=== PATIENT | female | born 1980 | race Caucasian/White ===

== ENCOUNTER 2016-08-25 10:26 | Emergency (ER) | payer BC ==
[2016-08-25 11:20] VITALS: BP 124/88; PULSE 87; RESP 16; TEMP 98.6; O2SAT 98
--- NOTE | 2016-08-25 11:55 | UCPHY ---
H & P Time Seen by Provider: 08/25/16 11:41 Patient Type: Established HPI/ROS: This patient describes left cheek pain and swelling over the weekend. She has had some intermittent nasal congestion left side for more than a week and she reports 5/10 pain described as an ache to that cheek that extends into the ear. She notes no other associated symptoms. No exacerbating or alleviating factors. ROS: No high fevers or chills. No confusion. No drainage from the ear. No change in hearing. No sore throat. She denies any dental pain. She reports no neck stiffness. 7 point ROS is otherwise negative. Past Medical/Surgical History: Otherwise healthy Smoking Status: Former smoker Physical Exam: Physical Exam Vital signs are normal. General: No acute distress HEENT: Patient has mild left cheek swelling and tenderness to percussion. Nose : Swollen nasal mucosa and turbinates on the left side. Right nares normal oropharynx: No dental tenderness to percussion. No gingival tenderness or swelling. No posterior pharyngeal erythema. No submental swelling. Ears: External canals and TMs are clear bilaterally. Eyes: Pupils equal and react to light. Extraocular motions are intact. No conjunctival injection Neck: Supple with no meningismus. No lymphadenopathy. Lungs: No respiratory distress. Cardiac: Brisk capillary refill is intact throughout. Skin: No rash or pallor. Appreciate no erythema or warmth to touch to the skin Neuro: Alert and oriented x3 with no sensorimotor deficits. Initial differential diagnosis: Maxillary sinusitis, trigeminal neuralgia, dental abscess, Constitutional: Initial Vital Signs Temperature (C) 37 C 08/25/16 11:09 Heart Rate 87 08/25/16 11:09 Respiratory Rate 16 08/25/16 11:09 Blood Pressure 124/88 H 08/25/16 11:09 O2 Sat (%) 98 08/25/16 11:09 O2 Delivery Mode Room Air Allergies/Adverse Reactions: cholecalciferol (vitamin D3) [From Vitamin D] Allergy (Verified 08/25/16 11:08) Rash ergocalciferol (vitamin D2) [From Vitamin D] Allergy (Verified 08/25/16 11:08) Rash CATS Allergy (Mild, Uncoded 11/27/15 16:38) NASAL SX SHRIMP Allergy (Unknown, Uncoded 11/27/15 16:38) Unknown Home Medications: Medication Instructions Recorded Cefdinir [Omnicef (RX)] 300 mg PO BID #20 cap 08/25/16 Fluticasone Nasal [Flonase Nasal 2 sprays NASAL DAILY #1 mdi 08/25/16 [place] (RX)] MDM/Departure - Depart Clinical Impression: Maxillary sinusitis, acute Qualifiers: Recurrence: non-recurrent Qualifier Code: (J01.00) Acute maxillary sinusitis, unspecified Instructions: Sinusitis (ED) Additional Instructions: Diagnosis: Left maxillary sinusitis Plan: Flonase steroid nasal spray Omnicef antibiotic Tylenol for discomfort as needed Ibuprofen in addition if needed Follow up with the Ear Nose Throat physician listed below if you are not improving with the treatment plan Return for any significant worsening despite the treatment plan Prescriptions: Fluticasone Nasal [Flonase Nasal [place] (RX)] 2 sprays NASAL DAILY #1 mdi Cefdinir [Omnicef (RX)] 300 mg PO BID #20 cap Referrals: IN STATE,. [Primary Care Provider] - As per Instructions - PQRS PQRS Measurement: NA
== END 2016-08-25 12:16 | disposition home or self-care (01) ==
LOC: CED 10:26
DX: J01.00 Acute maxillary sinusitis, unspecified (principal); Z87.891 Personal history of nicotine dependence
CPT/HCPCS: 99214-PO; G0463-PO

== ENCOUNTER 2016-09-17 08:46 | Emergency (ER) | payer BC ==
[2016-09-17 09:07] VITALS: RESP 18; O2SAT 96
--- NOTE | 2016-09-17 09:50 | UCPHY ---
H & P Patient Type: New Chief Complaint Nursing Narrative: Pt prescribed prednisone on 09/11 for sinus infection from DR. Higginbotham. Since, rpts disrupted sleep and this AM C/o heart racing, shaking and dizzyness. Denies DENNEY, vision changes. Time Seen by Provider: 09/17/16 08:56 HPI/ROS: CHIEF COMPLAINT: agitation, difficulty sleeping HISTORY OF PRESENT ILLNESS: this is been a long month this woman. Approximately 2-3 [place] developing left cheek pain. She did not have any antecedent URI or nasal blockage or allergy type symptoms. She was seen by her PCP who suggests that she had a left frontal maxillary sinusitis. She was placed on cefdinir that did not work out very well for her as she developed some abdominal distention and cramping discomfort. The she was placed on a course of Zithromax. As well as referred to [facility]. When seen by [facility] the persistent left cheek and zygoma area suggested in fact was a sinus infection that she was placed on clarithromycin. However the symptoms do continue. She was also placed on prednisone. She is now day 4 of 6 prednisone. She notes however beginning today that she actually started the prednisone she started having a moderate degree of agitation which continues to this day and a sense of palpitations and heart racing. In particular she notes that she is unable sleep at night due to the agitation. She has never been on prednisone before. Early in the course of the illness some 2 weeks ago she did have a fever blister overlying her upper lip at the Q but both. Inquiry, she states she has fever blisters before but none in this particular location the past. She has never had this area cultured in the past. It has since healed however there is an area of persistent erythema without any skin breakdown in the region as noted. She has search the Internet somewhat and is concerning for trigeminal neuralgia REVIEW OF SYSTEMS: Constitutional: No fever, no chills. Eyes: No diplopia. ENT: No sore throat. No blockage of nose no rhinorrhea no plugging of the ears and no dependent pain on the left cheek Cardiovascular: What she has had a sense of heart racing she has not had a sense of heart skipping a beat or she taken a pulse. Respiratory: No cough, shortness of breath, or wheezing. Gastrointestinal: No nausea vomiting or diarrhea. No abdominal pain. Genitourinary: No hematuria or frequency. Musculoskeletal: No back pain. Skin: No rashes. Neurological: No headache. 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 fx leg with blood clot to leg. chronic pelvic pain - Family History Significant Family History: No pertinent family hx - Social History Smoking Status: Former smoker Alcohol Use: None Drug Use: None - Physical Exam Exam: General Appearance: Alert, no distress. Afebrile. Normal phonation. No respiratory distress. Anxious, skin is warm dry without diaphoresis Eyes: Pupils equal and round no pallor or injection. No icterus ENT, Mouth: Mucous membranes moist. Pharynx without erythema or exudate. TM Clear. No tenderness to pressure over the zygoma on either side Neck: No adenopathy. Supple. No JVD. Trachea in midline. Respiratory: There are no retractions, lungs are clear to auscultation. Cardiovascular: Regular rate and rhythm, no murmur. Abdomen: Soft and nontender, no masses, bowel sounds normal. Neurological: Ox3. No motor weakness. Sensation intact. Gait nl. Skin: Warm and dry, no rashes. Musculoskeletal: No joint swelling. Extremities: No edema. Homans sign negative. No cords. Psychiatric: Mild agitation here. Cooperative. Teary-eyed. Apprehensive Constitutional: Initial Vital Signs Temperature (C) 36.6 C 09/17/16 08:59 Heart Rate 140 H 09/17/16 08:59 Respiratory Rate 18 09/17/16 08:59 Blood Pressure 157/106 H 09/17/16 08:59 O2 Sat (%) 96 09/17/16 08:59 O2 Delivery Mode Room Air Allergies/Adverse Reactions: cholecalciferol (vitamin D3) [From Vitamin D] Allergy (Verified 08/25/16 11:08) Rash ergocalciferol (vitamin D2) [From Vitamin D] Allergy (Verified 08/25/16 11:08) Rash CATS Allergy (Mild, Uncoded 11/27/15 16:38) NASAL SX SHRIMP Allergy (Unknown, Uncoded 11/27/15 16:38) Unknown Home Medications: Medication Instructions Recorded Cefdinir [Omnicef (RX)] 300 mg PO BID #20 cap 08/25/16 Fluticasone Nasal [Flonase Nasal 2 sprays NASAL DAILY #1 mdi 08/25/16 [place] (RX)] Lorazepam [Ativan] 1 - 2 mg PO TID PRN #15 tablet 09/17/16 PRILOSEC 09/17/16 Medical Decision Making - Diagnostics EKG Interpretation: EKG: Interpreted by me contemporaneously. Normal sinus rhythm. Heart rate [ 72 ]. QTc [421 ] STT segment: Normal T Waves: Normal Summary: Normal EKG ED Course/Re-evaluation: She was given a dose of 1 mg sublingual Ativan with mild to moderate improved. Electrolytes were stable as well as hemogram. Her TSH was normal Differential Diagnosis: Diagnostic considerations include, but are not limited to, the following: Preexcitation syndrome, WPW, PACs, SVT, hyperthyroidism, prednisone side effect As to the pain in the left cheek area all have to defer to the Ear N[facility] Throat was actively involved in the case. Certainly nothing about this particular case suggests drawn that were dealing with sinusitis thus I would not probably put her on another antibiotic. Very unusual such good HGB developing trigeminal neuralgia. Perhaps this is all related to the now healed lesions in the upper lip and is in fact a neurogenic neuropathic pain. I would expect the symptoms resolved spontaneously illness week or 2. In the interim she has further symptomatology next week she is here [facility] as would be expected - Data Points Laboratory Results: Laboratory Results 09/17/16 10:20 09/17/16 10:20 Medications Given: Discontinued Medications Lorazepam (Ativan) 1 mg SL EDNOW ONE Stop: 09/17/16 09:53 Last Admin: 09/17/16 10:25 Dose: 1 mg Departure - Departure Disposition: Home, Routine, Self-Care Clinical Impression: Medication side effect, Prednisone agitation, Left cheek pain Condition: Good Instructions: Palpitations (ED) Additional Instructions: Your symptoms of agitation or due to the prednisone, it is okay to stop If her symptoms of the left cheek pain continue beyond another week you should have a recheck with your Ear Nose and Throat doctor While on the Ativan, no drinking driving work around machinery or operating power tools Referrals: IN STATE,. [Primary Care Provider] - As per Instructions Prescriptions: Lorazepam [Ativan] 1 - 2 mg PO TID PRN #15 tablet PRN Reason: tremors, shakes and anxiety - PQRS PQRS Measurement: Not applicable
[2016-09-17] MEDS ORDERED: LORazepam 1 MG TAB SL ONE (09:52)
--- NOTE | 2016-09-17 10:37 | CPEKG ---
Heart Rate: 72 RR Interval: 833 P-R Interval: 152 QRSD Interval: 82 QT Interval: 384 QTC Interval: 421 P Stewardson: 69 QRS Stewardson: 53 T Wave Stewardson: 45 EKG Severity - NORMAL ECG - EKG Impression: SINUS RHYTHM Electronically Signed By: Darren Darnell 17-Sep-2016 15:56:49
[2016-09-17 10:40] LABS: % IMMATURE GRANULYOCYTES 0.7 % (0.0-1.1); ABSOLUTE IMMATURE GRANULOCYTES 0.11 10^3/uL (0.00-0.10); ADD DIFF? NO; ADD MORPH? NO; ADD SCAN? NO; ATYPICAL LYMPHOCYTE FLAG 0 (0-99); FRAGMENT RBC FLAG 0 (0-99); HEMATOCRIT 41.6 % (38.0-47.0); HEMOGLOBIN 14.1 g/dL (12.6-16.3); LEFT SHIFT FLG 0 (0-99); LIPEMIA HEMOLYSIS FLAG 90 (0-99); MEAN CELL HEMOGLOBIN 29.7 pg (27.9-34.1); MEAN CELL HEMOGLOBIN CONCENTR. 33.9 g/dL (32.4-36.7); MEAN CELL VOLUME 87.6 fL (81.5-99.8); PLATELET CLUMPS FLAG 0 (0-99); PLATELET COUNT 238 10^3/uL (150-400); RED BLOOD CELL COUNT 4.75 10^6/uL (4.18-5.33); RED CELL DISTRIBUTION WIDTH 12.7 % (11.5-15.2)
[2016-09-17 11:06] LABS: ANION GAP 11 mEq/L (8-16); CALCIUM 9.4 mg/dL (8.5-10.4); CARBON DIOXIDE 26 mEq/l (22-31); CHLORIDE 106 mEq/L (97-110); CREATININE 0.7 mg/dL (0.6-1.0); GLOMERULAR FILTRATION RATE > 60; GLUCOSE 95 mg/dL (70-100); POTASSIUM 3.8 mEq/L (3.5-5.2); SODIUM 143 mEq/L (134-144)
[2016-09-17 11:11] LABS: TROPONIN I < 0.012 ng/mL (0-0.034)
[2016-09-17 11:43] VITALS: BP 142/66; PULSE 78; TEMP 98
== END 2016-09-17 11:41 | disposition home or self-care (01) ==
LOC: CED 08:46
DX: R45.1 Restlessness and agitation (principal); G50.1 Atypical facial pain; T38.0X5A Adverse effect of glucocorticoids and synthetic analogues, initial encounter; R42 Dizziness and giddiness
CPT/HCPCS: 80048-PO; 84443-PO; 84484-PO; 85025-PO; G0463-PO

== ENCOUNTER 2016-10-03 21:05 | Emergency (ER) | payer BC ==
--- NOTE | 2016-10-03 21:16 | UCPHY ---
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 fx leg with blood clot to leg. chronic pelvic pain - Family History Significant Family History: No pertinent family hx - Social History Smoking Status: Former smoker Constitutional: Initial Vital Signs Temperature (C) 36.3 C 10/03/16 21:05 Heart Rate 74 10/03/16 21:05 Respiratory Rate 16 10/03/16 21:05 Blood Pressure 126/90 H 10/03/16 21:05 O2 Sat (%) 97 10/03/16 21:05 O2 Delivery Mode Room Air Allergies/Adverse Reactions: cholecalciferol (vitamin D3) [From Vitamin D] Allergy (Verified 10/03/16 21:16) Rash ergocalciferol (vitamin D2) [From Vitamin D] Allergy (Verified 10/03/16 21:16) Rash CATS Allergy (Mild, Uncoded 10/03/16 21:16) NASAL SX SHRIMP Allergy (Unknown, Uncoded 10/03/16 21:16) Unknown Home Medications: Medication Instructions Recorded [place] 10/03/16 Medical Decision Making ED Course/Re-evaluation: CHIEF COMPLAINT: Left 2nd finger laceration. HISTORY OF PRESENT ILLNESS: Patient is a 36-year-old female who presents after lacerating the tip of her left 2nd digit with a steak knife an hour ago. She still has full range of motion in the finger. Pain is moderate and does not radiate. Tetanus not up to date. She denies other complaints at this time. She has taken Tylenol for the pain. REVIEW OF SYSTEMS: A 10 point review of systems was performed and is negative with the exception of the elements mentioned in the history of present illness. PHYSICAL EXAM: HR, BP, O2 Sat, RR. Temp noted General Appearance: Alert, well hydrated, appropriate, and non-toxic appearing. Head: Atraumatic without scalp tenderness or obvious injury Eyes: Pupils equal, round, reactive to light and accommodation, EOMI, no trauma , no injection. Ears: Clear bilaterally, no perforation, normal landmarks Nose: Atraumatic, no rhinorrhea, clear. Throat: There is no erythema or exudates, no lesions, normal tonsils, mucus membranes moist. Neck: Supple, 2+ carotid upstroke, nontender, no lymphadenopathy. Respiratory: No retractions, no distress, no wheezes, and no accessory muscle use. Lungs are clear to auscultation bilaterally. Cardiovascular: Regular rate and rhythm, no murmurs, rubs, or gallops. Bilateral carotid, radial, dorsalis pedis, and posterior tibial pulses intact. Good capillary refill all extremities. Gastrointestinal: Abdomen is soft, nontender, non-distended, no masses, no rebound, no guarding, no peritoneal signs. Musculoskeletal: Normal active ROM of all extremities, atraumatic. Neurological: Alert, appropriate, and interactive. The patient has normal DTRs and non-focal cranial nerves, motor, sensory, and cerebellar exam. Skin: 1cm laceration tip of left 2nd finger extending into nailbed. No rashes, good turgor, no nodules on palpation. Past medical history:Denies Past surgical history:Denies Family history:Non-contributory Social history:Here with DIFFERENTIAL DIAGNOSIS: Includes but is not limited to: laceration, abrasion, fracture, avulsion fracture, subungual hematoma. MEDICAL DECISION MAKIN-year-old female presents after cutting her finger with a steak knife an hour ago. The laceration extends through her nail. It has ceased bleeding and she took Tylenol for the pain. Due to the nature of the injury she will not benefit from suturing. Her wound will be cleaned and then glued with Dermabond. She is not up to take on her Tetanus shot and will receive a booster. - Data Points Medications Given: Discontinued Medications Diphtheria/Tetanus/Acell Pertussis (Boostrix) 0.5 ml IM .ONCE ONE Stop: 10/03/16 21:22 Last Admin: 10/03/16 21:28 Dose: 0.5 ml Octyl Cyanoacrylate (Dermabond) 1 each TP EDNOW ONE Stop: 10/03/16 21:22 Last Admin: 10/03/16 21:27 Dose: 1 each Departure - Departure Disposition: Home, Routine, Self-Care Clinical Impression: Finger laceration Condition: Good Instructions: Finger Laceration (ED), Skin Adhesive Care (ED) Additional Instructions: Allow the skin glue to fall off on its own, do not pull it off. Return for any serious worsening of condition. Referrals: [place],. [Primary Care Provider] - As per Instructions - PQRS PQRS Measurement: Does not apply Report Scribed for: Jamel Gracia Report Scribed by: Jordan Dudley Date of Report: 10/03/16 Time of Report: 21:16
[2016-10-03 21:20] VITALS: BP 126/90; PULSE 74; RESP 16; TEMP 97.4; O2SAT 97
[2016-10-03] MEDS ORDERED: TDAP ADULT 0.5 ML INJ (BOOSTRIX) IM ONE (21:21)
[2016-10-03] MEDS ORDERED: SKIN ADHESIVE (DERMABOND) 1 EACH TP ONE (21:21)
== END 2016-10-03 21:35 | disposition home or self-care (01) ==
LOC: CED 21:05
DX: S61.311A Laceration without foreign body of left index finger with damage to nail, initial encounter (principal); W26.0XXA Contact with knife, initial encounter
CPT/HCPCS: 99214-PO; G0463-PO

== ENCOUNTER → 2017-03-26 | Outpatient (CLI) | payer BC | LOC: BRMIMAGING 11:23 | PROVIDERS: ATTEND Obstetrics & Gynecology | DX: N83.201 Unspecified ovarian cyst, right side (principal); D25.9 Leiomyoma of uterus, unspecified; R93.8 Abnormal findings on diagnostic imaging of other specified body structures | CPT/HCPCS: 76856-PO ==

== ENCOUNTER → 2017-04-20 | Outpatient (CLI) | payer BC ==
[~2017-04-20] MED LIST: IOPAMIDOL (ISOVUE 370) 100 ML BTL IV ONE
== END ==
LOC: FIMAGING 14:38
PROVIDERS: ATTEND Family Medicine
DX: H53.8 Other visual disturbances (principal); H57.11 Ocular pain, right eye
CPT/HCPCS: Q9967

== ENCOUNTER → 2017-07-02 | Outpatient (CLI) | payer BC | LOC: FIMAGING 08:41 | PROVIDERS: ATTEND Obstetrics & Gynecology | DX: Z12.39 Encounter for other screening for malignant neoplasm of breast (principal); D24.2 Benign neoplasm of left breast; D24.1 Benign neoplasm of right breast ==

== ENCOUNTER 2017-07-23 14:47 | Emergency (ER) | payer BC ==
[2017-07-23 14:55] VITALS: TEMP 99.1
[2017-07-23] MEDS ORDERED: HYDROCODONE/APAP 5/325 TAB PO ONE (16:36)
--- NOTE | 2017-07-23 16:36 | EDPHY ---
H & P Time Seen by Provider: 07/23/17 16:06 HPI/ROS: CHIEF COMPLAINT: Neck pain radiating to arms and legs HISTORY OF PRESENT ILLNESS: 37-year-old female presents with neck pain radiating to her arms and legs. She has a history of intermittent neck pain. The neck pain has worsened over the last 10 days, without obvious aggravating factor. The neck pain is constant and unrelieved despite ibuprofen, Ultram and Valium. The pain radiates to both arms and to her legs. When she gets muscle spasms of her neck, she develops a tingling sensation of her hands and the inner aspect of her thighs. Once the cramping is over, the tingling resolves. She has a history of low back pain. 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 She has received steroid injections for her low back and has seen a neurosurgeon and physical therapist. She had a CT scan of her neck in March 2017 that revealed mild C3-4 spondylosis. REVIEW OF SYSTEMS: Constitutional: No fever, no chills Eyes: No visual changes ENT: No sore throat Respiratory: No cough, no shortness of breath Cardiac: No chest pain Gastrointestinal: No nausea, no vomiting, no abdominal pain Genitourinary: No hematuria, no dysuria Musculoskeletal: No leg pain or swelling Skin: No rash Neurological: No headache, no weakness Psychiatric: Feels anxious Past Medical/Surgical History: Neck and back pain Social History: No recent alcohol Smoking Status: Former smoker Physical Exam: General Appearance: Alert, pleasant Eyes: Pupils equal and round, no conjunctival pallor ENT, Mouth: Mucous membranes moist Neck: Normal inspection, diffuse tenderness in the midline and paraspinous areas Respiratory: Lungs are clear to auscultation Cardiovascular: Regular rate and rhythm Gastrointestinal: Abdomen is soft and nontender Neurological: A&O, motor 5/5 of the upper and lower extremities, sensory intact to light touch, normal gait Skin: Warm and dry, no rash Extremities: Nontender, no pedal edema Psychiatric: flat affect Constitutional: Initial Vital Signs Temperature (C) 37.3 C 07/23/17 14:50 Heart Rate 118 H 07/23/17 14:50 Respiratory Rate 20 07/23/17 14:50 Blood Pressure 122/90 H 07/23/17 14:50 O2 Sat (%) 99 07/23/17 14:50 O2 Delivery Mode Room Air Allergies/Adverse Reactions: cholecalciferol (vitamin D3) [From Vitamin D] Allergy (Verified 10/03/16 21:16) Rash ergocalciferol (vitamin D2) [From Vitamin D] Allergy (Verified 10/03/16 21:16) Rash CATS Allergy (Mild, Uncoded 10/03/16 21:16) NASAL SX SHRIMP Allergy (Unknown, Uncoded 10/03/16 21:16) Unknown Home Medications: Medication Instructions Recorded [place] 10/03/16 Hydrocodone/APAP 5/325 [[place] 1 - 2 tab PO Q4H PRN #10 tab 07/23/17 5/325] Protonix 07/23/17 Robaxin 500 mg (*) 07/23/17 Valium 07/23/17 traMADol 07/23/17 Medical Decision Making - Diagnostics Imaging Results: Imaging Impressions Cervical Spine MRI 07/23/17 16:32 Impression: 1. C6-C7: Mild central canal stenosis, secondary to a central disk herniation, protrusion, without cord compression or neural foraminal stenosis. 2. C3-C4: Mild degenerative disk disease with small dorsal disk/osteophyte complex and right uncovertebral osteophyte, resulting in mild right neural foraminal stenosis without central canal stenosis. 3. Please see above findings at specific disk levels. Findings and recommendations discussed with Emergency Department physician, Dr. Marya Power at 1748 hours on July 23, 2017. Final report concurs with initial preliminary interpretation. ED Course/Re-evaluation: Vicodin given. MRI results discussed with the patient. She declined steroids, as she has had adverse reactions to steroids in the past. She will follow up with her applications specialist. Vicodin prescribed. - Data Points Medications Given: Discontinued Medications Hydrocodone Bitart/Acetaminophen ([place] 5/325) 1 tab PO EDNOW ONE Stop: 07/23/17 16:37 Last Admin: 07/23/17 17:56 Dose: Not Given Departure - Departure Disposition: Home, Routine, Self-Care Clinical Impression: Neck pain Condition: Good Instructions: Neck Pain (ED) Additional Instructions: The MRI of your neck shows a mild central disc herniation at C6-7. Follow-up with Dr. Muniz in the office. Ibuprofen 600 mg 3 times daily while the pain persists. Take Valium and Vicodin as needed for severe pain and muscle spasm. Referrals: Jia Rodriguez MD [Primary Care Provider] - As per Instructions Alberto Muniz MD [Medical Doctor] - As per Instructions (Call to make an appointment.) Prescriptions: Hydrocodone/APAP 5/325 [[place] 5/325] 1 - 2 tab PO Q4H PRN #10 tab PRN Reason: Pain, Moderate
[2017-07-23 18:17] VITALS: BP 102/68; PULSE 63; RESP 14; O2SAT 97
== END 2017-07-23 18:40 | disposition home or self-care (01) ==
DX: M54.2 Cervicalgia (principal); Z87.891 Personal history of nicotine dependence

== ENCOUNTER 2018-02-22 16:43 | Emergency (ER) | payer BC ==
[2018-02-22] MEDS ORDERED: HYDROmorphONE/DILAUDID 2 MG/ML INJ IVP ONE (17:16)
[2018-02-22] MEDS ORDERED: ONDANSETRON 4 MG/2 ML VIAL IVP ONE (17:16)
[2018-02-22] MEDS ORDERED: NS 1,000 ML IV ONE (17:16)
--- NOTE | 2018-02-22 17:16 | EDPHY ---
H & P Stated Complaint: RUQ ABD PAIN X 9 DAYS/HAS US ORDERED FOR THURS BUT TOO MUCH PAIN Time Seen by Provider: 02/22/18 17:15 HPI/ROS: HPI: This is a 37-year-old female who presents with Chief Complaint: RUQ ABD PAIN X 9 DAYS/HAS US ORDERED FOR THURS BUT TOO MUCH PAIN Location: Epigastric and right upper quadrant Quality: Pain Duration: 9 days Signs and Symptoms: no fever, no nausea, no vomiting, no hematemesis, no blood in stool, no abdominal bloating, no diarrhea, no back pain, no urinary symptoms , no vaginal bleeding/discharge, no indigestion, no chest pain, no shortness of breath, + burning sensation in throat Timing: Intermittent episodes Severity: Moderate Context: Patient has a history of an ovarian cyst, chronic pelvic pain presents with 9 day history of epigastric and right upper quadrant burning pain that is nonradiating in nature. She reports that it 1st started while lying in bed flat on her back in normally occurs every night. She believes that prior to this happening she was putting acetone on her nails as well as applying a cream that is the pain medication type to the back of her neck and did not fully wash her hands and then put her braces into her mouth and this caused her throat to burn. She has been seen at the urgent care 2 times over the last 1 week with laboratory studies and started on Protonix. She reports that she feels relief of throat discomfort with a GI cocktail but it only lasted approximately 30 min. She denies any family history of gallbladder disease. She denies any early satiety or food intolerances. LMP 1-2 weeks ago. Urgent care ordered an ultrasound for but patient reports that she is unable to wait for this. She has no nausea, vomiting, vaginal bleeding, vaginal discharge, fever. Modifying Factors: See above Comment: ROS: see HPI Constitutional: No fever, no chills, no weight loss Eyes: No blurred vision Respiratory: No shortness of breath, no cough Cardiovascular: No chest pain, no palpitations Gastrointestinal: No nausea, no vomiting, no diarrhea, no hematemesis, no blood in stool Genitourinary: No dysuria, no blood in urine Extremities: No myalgias, no edema Neurologic: No weakness, no numbness Skin: No rashes, no petechiae Hematologic: No bruising, no bleeding MEDICAL/SURGICAL/SOCIAL HISTORY: Medical history:ovarian cysts/ Fibromyomas removed, chronic pelvic pain, dvt, cervical bulging discs Surgical history: Denies Social history: Employed, . Family history noncontributory. CONSTITUTIONAL: Extremely well-appearing adult female, awake and alert, no obvious distress HEENT: Atraumatic and normocephalic, PERRL, EOMI. Nares patent; no rhinorrhea; no nasal mucosal edema. Tympanic membranes clear. Oropharynx clear, no exudate and moist pink mucosa. Airway patent. No lymphadenopathy. No meningismus. Cardiovascular: Normal S1/S2, regular rate, regular rhythm, without murmur rub or gallop. PULMONARY/CHEST: Symmetrical and nontender. Clear to auscultation bilaterally. Good air movement. No accessory muscle usage. ABDOMEN: Soft, nondistended, moderate right upper quadrant and epigastric tenderness, + Drummond sign, no rebound, no guarding, no peritoneal signs, no masses or organomegaly. No CVAT. Bowel sounds heard x4 quadrants EXTREMITIES: 2/2 pulses, strength 5/5, no deformities, no clubbing, no cyanosis or edema. NEUROLOGICAL: no focal neuro deficits. GCS 15. SKIN: Warm and dry, no erythema. no rash. Good capillary refill. Source: Patient Exam Limitations: No limitations - Personal History LMP (Females 10-55): 8-14 Days Ago Current Tetanus Diphtheria and Acellular Pertussis (TDAP): Yes Tetanus Vaccine Date: 2003 - Medical/Surgical History Hx Asthma: No Hx Chronic Respiratory Disease: No Hx Diabetes: No Hx Cardiac Disease: No Hx Renal Disease: No Hx Cirrhosis: No Hx Alcoholism: No Hx HIV/AIDS: No Hx Splenectomy or Spleen Trauma: No Other PMH: ovarian cysts/ Fibromyomas removed. chronic pelvic pain, dvt, cervical bulging discs - Social History Smoking Status: Former smoker Constitutional: Initial Vital Signs Temperature (C) 37 C 02/22/18 16:57 Heart Rate 75 02/22/18 16:57 Respiratory Rate 17 02/22/18 16:57 Blood Pressure 117/90 H 02/22/18 16:57 O2 Sat (%) 97 02/22/18 16:57 O2 Delivery Mode Room Air Allergies/Adverse Reactions: cholecalciferol (vitamin D3) [From Vitamin D] Allergy (Verified 02/22/18 16:56) Rash ergocalciferol (vitamin D2) [From Vitamin D] Allergy (Verified 02/22/18 16:56) Rash CATS Allergy (Mild, Uncoded 10/03/16 21:16) NASAL SX SHRIMP Allergy (Unknown, Uncoded 10/03/16 21:16) Unknown Home Medications: Medication Instructions Recorded Protonix 07/23/17 Baclofen 02/22/18 Pantoprazole Sodium [Protonix 40mg 40 mg PO BID #30 tab 02/22/18 (*)] Sucralfate [Carafate 1 GM (*)] 1 gm PO ACHS 7 Days tab 02/22/18 Medical Decision Making - Diagnostics Imaging Results: Imaging Impressions Abdomen Ultrasound 02/22/18 17:17 Impression: Negative right upper quadrant ultrasound. Results called and discussed with Cecy Meek PAC on 02/22/2018 at 18:17. ED Course/Re-evaluation: Vital signs reviewed and stable upon arrival. No systemic signs. Labs, urinalysis, IV fluids, IV medications, right upper quadrant ultrasound ordered Patient given 1 L normal saline, IV Zofran, IV Dilaudid 0.5 mg, IV Reglan 10 mg and IV Benadryl 25 mg Called by radiologist who advised that right upper quadrant ultrasound is completely unremarkable. Reassessed patient who reports relief of symptoms. Suspect patient has gastritis versus peptic ulcer disease versus anxiety. Patient will be started on Protonix 40 mg twice daily and care fight with gastroenterology follow-up for EGD. Repeat abdominal exam is soft and nontender. This patient was seen under the supervision of my secondary supervising physician. I evaluated care for this patient independently. Discussed this patient with Dr. Gracia. Differential Diagnosis: Abdominal pain including but not limited to appendicitis, cholecystitis, gastritis and urinary tract infection. - Data Points Laboratory Results: Laboratory Results 02/22/18 17:18 02/22/18 17:18 02/22/18 02/22/18 02/22/18 17:58 17:18 17:18 WBC RBC Hgb Hct MCV MCH MCHC RDW Plt Count MPV Neut % (Auto) Lymph % (Auto) [place] % (Auto) Eos % (Auto) Baso % (Auto) Nucleat RBC Rel Count Absolute Neuts (auto) Absolute Lymphs (auto) Absolute Monos (auto) Absolute Eos (auto) Absolute Basos (auto) Absolute Nucleated RBC Immature Gran % Immature Gran # Sodium 141 mEq/L mEq/L (135-145) Potassium 4.0 mEq/L mEq/L (3.3-5.0) Chloride 105 mEq/L mEq/L (97-110) Carbon Dioxide 25 mEq/l mEq/l (22-31) Anion Gap 11 mEq/L mEq/L (8-16) BUN 6 mg/dL L mg/dL (7-23) Creatinine 0.7 mg/dL mg/dL (0.6-1.0) Estimated GFR > 60 Glucose 87 mg/dL mg/dL (70-100) Calcium 9.9 mg/dL mg/dL (8.5-10.4) Total Bilirubin 0.6 mg/dL mg/dL (0.1-1.4) Conjugated Bilirubin 0.3 mg/dL mg/dL (0.0-0.5) Unconjugated Bilirubin 0.3 mg/dL mg/dL (0.0-1.1) AST 19 IU/L IU/L (14-46) ALT 31 IU/L IU/L (9-52) Alkaline Phosphatase 71 IU/L IU/L (38-126) Total Protein 7.9 g/dL g/dL (6.3-8.2) Albumin 4.8 g/dL g/dL (3.5-5.0) Lipase 81 IU/L IU/L (23-300) Beta HCG, Qual NEGATIVE Urine Color YELLOW Urine Appearance CLEAR Urine pH 8.0 H (5.0-7.5) Ur Specific [place] 1.008 (1.002-1.030) Urine Protein NEGATIVE (NEGATIVE) Urine Ketones NEGATIVE (NEGATIVE) Urine Blood NEGATIVE (NEGATIVE) Urine Nitrate NEGATIVE (NEGATIVE) Urine Bilirubin NEGATIVE (NEGATIVE) Urine Urobilinogen NEGATIVE EU EU (0.2-1.0) Ur Leukocyte Esterase NEGATIVE (NEGATIVE) Urine Glucose NEGATIVE (NEGATIVE) 02/22/18 17:18 WBC 6.22 10^3/uL 10^3/uL (3.80-9.50) RBC 4.40 10^6/uL 10^6/uL (4.18-5.33) Hgb 13.0 g/dL g/dL (12.6-16.3) Hct 37.8 % L % (38.0-47.0) MCV 85.9 fL fL (81.5-99.8) MCH 29.5 pg pg (27.9-34.1) MCHC 34.4 g/dL g/dL (32.4-36.7) RDW 13.1 % % (11.5-15.2) Plt Count 228 10^3/uL 10^3/uL (150-400) MPV 11.4 fL fL (8.7-11.7) Neut % (Auto) 58.9 % % (39.3-74.2) Lymph % (Auto) 30.4 % % (15.0-45.0) [place] % (Auto) 9.0 % % (4.5-13.0) Eos % (Auto) 1.0 % % (0.6-7.6) Baso % (Auto) 0.5 % % (0.3-1.7) Nucleat RBC Rel Count 0.0 % % (0.0-0.2) Absolute Neuts (auto) 3.67 10^3/uL 10^3/uL (1.70-6.50) Absolute Lymphs (auto) 1.89 10^3/uL 10^3/uL (1.00-3.00) Absolute Monos (auto) 0.56 10^3/uL 10^3/uL (0.30-0.80) Absolute Eos (auto) 0.06 10^3/uL 10^3/uL (0.03-0.40) Absolute Basos (auto) 0.03 10^3/uL 10^3/uL (0.02-0.10) Absolute Nucleated RBC 0.00 10^3/uL 10^3/uL (0-0.01) Immature Gran % 0.2 % % (0.0-1.1) Immature Gran # 0.01 10^3/uL 10^3/uL (0.00-0.10) Sodium Potassium Chloride Carbon Dioxide Anion Gap BUN Creatinine Estimated GFR Glucose Calcium Total Bilirubin Conjugated Bilirubin Unconjugated Bilirubin AST ALT Alkaline Phosphatase Total Protein Albumin Lipase Beta HCG, Qual Urine Color Urine Appearance Urine pH Ur Specific [place] Urine Protein Urine Ketones Urine Blood Urine Nitrate Urine Bilirubin Urine Urobilinogen Ur Leukocyte Esterase Urine Glucose Medications Given: Discontinued Medications Diphenhydramine HCl (Benadryl Injection) 25 mg IVP EDNOW ONE Stop: 02/22/18 17:24 Last Admin: 02/22/18 17:50 Dose: 25 mg Sodium Chloride (Ns) 1,000 mls @ 0 mls/hr IV EDNOW ONE; Wide Open PRN Reason: Protocol Stop: 02/22/18 17:17 Last Admin: 02/22/18 17:49 Dose: 1,000 mls Metoclopramide HCl (Reglan Injection) 10 mg IVP EDNOW ONE Stop: 02/22/18 17:24 Last Admin: 02/22/18 17:50 Dose: 10 mg Ondansetron HCl (Zofran) 4 mg IVP EDNOW ONE Stop: 02/22/18 17:17 Last Admin: 02/22/18 17:50 Dose: 4 mg Departure - Departure Disposition: Home, Routine, Self-Care Clinical Impression: PUD (peptic ulcer disease) Gastritis Qualifiers: Gastritis type: unspecified gastritis Chronicity: acute Gastritis bleeding: without bleeding Qualified Code(s): K29.00 - Acute gastritis without bleeding Condition: Good Instructions: Peptic Ulcer (ED), Gastritis (ED), Diet for Stomach Ulcers and Gastritis (ED), Upper Endoscopy (DC) Additional Instructions: Consume a minimum of 8-10 glasses of water or electrolyte fluid replacement drinks that include Gatorade, Powerade, Pedialyte. Eat a bland diet for the next 48 hours and then slowly advance as tolerated. Take Protonix 40 mg twice daily for the next 2 weeks and then 40 mg at night there after. Take Carafate 30 min before meals and at bed times x 1 week. Follow-up with Gastroenterology outpatient for evaluation and determine candidacy for outpatient EGD. Follow-Up: Please follow-up as noted above. Follow up sooner if your condition worsens or if you develop any new problems Call as soon as possible for an appointment. Be clear when you call for an appointment that this is an Emergency Department follow-up. Contact the Emergency Department if you are having trouble arranging follow up care. Our referrals are not based on your insurance network. When time allows, contact your insurance carrier to verify the referral physician is in your plan. If not, get a referral for an in-internet network specialist. Please ask us if you have any questions. Referrals: Jia Rodriguez MD [Primary Care Provider] - As per Instructions Christian Valderrama MD [Medical Doctor] - As per Instructions Prescriptions: Pantoprazole Sodium [Protonix 40mg (*)] 40 mg PO BID #30 tab Sucralfate [Carafate 1 GM (*)] 1 gm PO ACHS 7 Days tab
[2018-02-22] MEDS ORDERED: METOCLOPRAMIDE 10 MG/2 ML VIAL IVP ONE (17:23)
[2018-02-22 17:34] LABS: PLATELET COUNT 228 10^3/uL (150-400)
[2018-02-22 18:53] VITALS: BP 117/82
== END 2018-02-22 18:51 | disposition home or self-care (01) ==
DX: K29.00 Acute gastritis without bleeding (principal); K27.9 Peptic ulcer, site unspecified, unspecified as acute or chronic, without hemorrhage or perforation; E86.9 Volume depletion, unspecified; Z87.891 Personal history of nicotine dependence
CPT/HCPCS: 96374; J1170; J1200; J2405; J2765

== ENCOUNTER → 2018-04-27 | Outpatient (CLI) | payer BC | LOC: BMCIMAGING 12:22 | PROVIDERS: ATTEND Family Medicine | DX: M54.2 Cervicalgia (principal) ==

== ENCOUNTER → 2018-06-10 | Outpatient (CLI) | payer BC ==
[~2018-06-10] MED LIST changes: +GADOBUTROL 10 ML VIAL IVP ONE; -IOPAMIDOL (ISOVUE 370) 100 ML BTL IV ONE
== END ==
LOC: FIMAGING 12:41
PROVIDERS: ATTEND Physical Medicine & Rehabilitation
DX: M48.02 Spinal stenosis, cervical region (principal); M50.823 Other cervical disc disorders at C6-C7 level
CPT/HCPCS: A9585

== ENCOUNTER → 2018-06-17 | Outpatient (CLI) | payer BC | LOC: FIMAGING 08:58 | PROVIDERS: ATTEND Midwife | DX: D24.1 Benign neoplasm of right breast (principal); D24.2 Benign neoplasm of left breast ==

== ENCOUNTER → 2018-07-05 | Outpatient (CLI) | payer BC | LOC: FIMAGING 10:11 | PROVIDERS: ATTEND Physical Medicine & Rehabilitation | DX: R29.2 Abnormal reflex (principal) | CPT/HCPCS: A9585 ==

== ENCOUNTER 2018-08-07 21:55 | Emergency (ER) | payer BC ==
[2018-08-07 22:42] LABS: PLATELET COUNT 229 10^3/uL (150-400)
[2018-08-07] MEDS ORDERED: LIDOCAINE 2% VISCOUS 15 ML UDCUP PO ONE (22:48)
[2018-08-07] MEDS ORDERED: MAG HYDROX/AL HYDROX/SIMETH 30 ML UDCUP PO ONE (22:48)
[2018-08-07] MEDS ORDERED: HYOSCYAMINE SULFATE 0.125 MG TAB PO ONE (22:48)
--- NOTE | 2018-08-07 22:49 | EDPHY ---
H & P Stated Complaint: ruq abd pain for weeks worse tonite Time Seen by Provider: 08/07/18 22:07 HPI/ROS: CHIEF COMPLAINT: Right upper quadrant abdominal pain HISTORY OF PRESENT ILLNESS: 38-year-old female via private vehicle complaining of right upper quadrant and epigastric discomfort since this morning after drinking coffee. She has not had similar episodes for the past several months, has been seen the ER previously for similar, has been to numerous urgent cares for similar has been evaluated by Dr. Bolivar Rubio including upper endoscopic evaluation which was positive for gastritis. She is currently a on a proton pump inhibitor. She notes radiation to her right shoulder. She denies chest pain. Denies dyspnea. Denies nausea or vomiting. Denies early satiety. Denies melena hematochezia. Denies trauma PRIMARY CARE PROVIDER: REVIEW OF SYSTEMS: 10 systems reviewed and negative with the exception of the elements mentioned in the history of present illness PAST MEDICAL & SURGICAL HISTORY: No pertinent medical or surgical history SOCIAL HISTORY: nonsmoker PHYSICAL EXAM (Prior to examination, patient consented to physical exam, hands were washed and my usual and customary physical exam procedures followed) 1) GENERAL: Well-developed, well-nourished, alert and oriented. Appears to be in no acute distress. 2) HEAD: Normocephalic, atraumatic 3) HEENT: Pupils equal, round, reactive to light bilaterally. Sclera anicteric. 4) NECK: Full range of motion, no meningeal signs. 5) LUNGS: Clear auscultation bilaterally, no wheezes, no rhonchi, no retractions. 6) HEART: Regular rate and rhythm, no murmur, no heave, no gallop. 7) ABDOMEN: No guarding, tender to palpation epigastrium and right upper quadrant , positive Drummond's negative McBurney's,, negative Rovsing's, negative peritoneal sign, 8) MUSCULOSKELETAL: Moving all extremities, no focal areas of tenderness, no obvious trauma. No peripheral edema or discoloration. 9) BACK: No CVA tenderness, no midline vertebral tenderness, no fluctuance, no step-off, no obvious trauma, no visual or palpable abnormality. 10) SKIN: No rash, no petechiae. 11) Psychiatric: Patient is oriented X 3, there is no agitation. DIFFERENTIAL DIAGNOSIS: In no particular order, including but not limited to biliary colic, cholecystitis, peptic ulcer disease, pancreatitis, and gastroenteritis. This is a partial list of diagnoses considered. These considerations are based on history, physical exam, past history and reassessment. - Personal History LMP (Females 10-55): 1-7 Days Ago Current Tetanus/Diphtheria Vaccine: Yes Current Tetanus Diphtheria and Acellular Pertussis (TDAP): Yes Tetanus Vaccine Date: 2003 - Medical/Surgical History Hx Asthma: No Hx Chronic Respiratory Disease: No Hx Diabetes: No Hx Cardiac Disease: No Hx Renal Disease: No Hx Cirrhosis: No Hx Alcoholism: No Hx HIV/AIDS: No Hx Splenectomy or Spleen Trauma: No Other PMH: ovarian cysts/ Fibromyomas removed. chronic pelvic pain, dvt, cervical bulging discs - Social History Smoking Status: Former smoker Constitutional: Initial Vital Signs Temperature (C) 36.7 C 08/07/18 22:07 Heart Rate 79 08/07/18 22:07 Respiratory Rate 18 08/07/18 22:07 Blood Pressure 115/77 08/07/18 22:07 O2 Sat (%) 100 08/07/18 22:07 O2 Delivery Mode Room Air Allergies/Adverse Reactions: cholecalciferol (vitamin D3) [From Vitamin D] Allergy (Verified 02/22/18 16:56) Rash ergocalciferol (vitamin D2) [From Vitamin D] Allergy (Verified 02/22/18 16:56) Rash CATS Allergy (Mild, Uncoded 10/03/16 21:16) NASAL SX SHRIMP Allergy (Unknown, Uncoded 10/03/16 21:16) Unknown Home Medications: Medication Instructions Recorded DEXILANT 08/07/18 Hydrocodone/APAP 5/325 [Arroyo 1 tab PO Q6 PRN #7 tab 08/07/18 5/325 (RX)] Medical Decision Making - Diagnostics Imaging Results: Imaging Impressions Abdomen Ultrasound 08/07/18 22:23 Impression: Normal study. Is also discussed with PATY Fernandes at 23:24 PM. Images reviewed myself ED Course/Re-evaluation: 11:35 p.m.: Patient was re-evaluated with serial examinations. She was given GI cocktail and notes mild improvement in symptoms. I reviewed her medical records. The specific etiology of her chronic abdominal pain is incompletely clear. I think that pulmonary embolus is less than likely this patient, low pretest suspicion and negative perc score.. She has had extensive evaluation including gastroenterology for her ongoing symptoms for the past several months. Patient requests name of a different assistant auditor. I discussed with her that she may necessitate more advanced imaging study he beyond that available from the emergency department. I do not think that CT imaging of the abdomen and pelvis is indicated at this time. She requests analgesia and given a small prescription for Arroyo. Recommended follow up with Gastroenterology. She has been given my usual and customary abdominal precautions instructions. Care of patient under supervision of secondary supervising physician Dr He Sanchez with whom I discussed case. - Data Points Laboratory Results: Laboratory Results 08/07/18 22:30 08/07/18 22:30 08/07/18 08/07/18 08/07/18 22:30 22:30 22:30 WBC 7.25 10^3/uL 10^3/uL (3.80-9.50) RBC 4.46 10^6/uL 10^6/uL (4.18-5.33) Hgb 11.9 g/dL L g/dL (12.6-16.3) Hct 36.0 % L % (38.0-47.0) MCV 80.7 fL L fL (81.5-99.8) MCH 26.7 pg L pg (27.9-34.1) MCHC 33.1 g/dL g/dL (32.4-36.7) RDW 15.4 % H % (11.5-15.2) Plt Count 229 10^3/uL 10^3/uL (150-400) MPV 10.7 fL fL (8.7-11.7) Neut % (Auto) 56.9 % % (39.3-74.2) Lymph % (Auto) 31.0 % % (15.0-45.0) [place] % (Auto) 10.2 % % (4.5-13.0) Eos % (Auto) 1.5 % % (0.6-7.6) Baso % (Auto) 0.3 % % (0.3-1.7) Nucleat RBC Rel Count 0.0 % % (0.0-0.2) Absolute Neuts (auto) 4.12 10^3/uL 10^3/uL (1.70-6.50) Absolute Lymphs (auto) 2.25 10^3/uL 10^3/uL (1.00-3.00) Absolute Monos (auto) 0.74 10^3/uL 10^3/uL (0.30-0.80) Absolute Eos (auto) 0.11 10^3/uL 10^3/uL (0.03-0.40) Absolute Basos (auto) 0.02 10^3/uL 10^3/uL (0.02-0.10) Absolute Nucleated RBC 0.00 10^3/uL 10^3/uL (0-0.01) Immature Gran % 0.1 % % (0.0-1.1) Immature Gran # 0.01 10^3/uL 10^3/uL (0.00-0.10) Sodium 140 mEq/L mEq/L (135-145) Potassium 4.5 mEq/L mEq/L (3.5-5.2) Chloride 109 mEq/L mEq/L (97-110) Carbon Dioxide 21 mEq/l L mEq/l (22-31) Anion Gap 10 mEq/L mEq/L (6-14) BUN 14 mg/dL mg/dL (7-23) Creatinine 0.7 mg/dL mg/dL (0.6-1.0) Estimated GFR > 60 Glucose 76 mg/dL mg/dL (70-100) Calcium 9.4 mg/dL mg/dL (8.5-10.4) Total Bilirubin 0.3 mg/dL mg/dL (0.1-1.4) Conjugated Bilirubin 0.1 mg/dL mg/dL (0.0-0.5) Unconjugated Bilirubin 0.2 mg/dL mg/dL (0.0-1.1) AST 30 IU/L IU/L (14-46) ALT 54 IU/L H IU/L (9-52) Alkaline Phosphatase 63 IU/L IU/L (38-126) Total Protein 7.5 g/dL g/dL (6.3-8.2) Albumin 4.6 g/dL g/dL (3.5-5.0) Lipase 122 IU/L IU/L (23-300) Beta HCG, Qual NEGATIVE Urine Color Urine Appearance Urine pH Ur Specific [place] Urine Protein Urine Ketones Urine Blood Urine Nitrate Urine Bilirubin Urine Urobilinogen Ur Leukocyte Esterase Urine RBC Urine WBC Ur Epithelial Cells Urine Glucose 08/07/18 22:15 WBC RBC Hgb Hct MCV MCH MCHC RDW Plt Count MPV Neut % (Auto) Lymph % (Auto) [place] % (Auto) Eos % (Auto) Baso % (Auto) Nucleat RBC Rel Count Absolute Neuts (auto) Absolute Lymphs (auto) Absolute Monos (auto) Absolute Eos (auto) Absolute Basos (auto) Absolute Nucleated RBC Immature Gran % Immature Gran # Sodium Potassium Chloride Carbon Dioxide Anion Gap BUN Creatinine Estimated GFR Glucose Calcium Total Bilirubin Conjugated Bilirubin Unconjugated Bilirubin AST ALT Alkaline Phosphatase Total Protein Albumin Lipase Beta HCG, Qual Urine Color PALE YELLOW Urine Appearance CLEAR Urine pH 5.0 (5.0-7.5) Ur Specific [place] 1.010 (1.002-1.030) Urine Protein NEGATIVE (NEGATIVE) Urine Ketones NEGATIVE (NEGATIVE) Urine Blood 1+ H (NEGATIVE) Urine Nitrate NEGATIVE (NEGATIVE) Urine Bilirubin NEGATIVE (NEGATIVE) Urine Urobilinogen NEGATIVE EU EU (0.2-1.0) Ur Leukocyte Esterase NEGATIVE (NEGATIVE) Urine RBC 1-3 /hpf /hpf (0-3) Urine WBC 1-3 /hpf /hpf (0-3) Ur Epithelial Cells NONE SEEN /lpf /lpf (NONE-1+) Urine Glucose NEGATIVE (NEGATIVE) Medications Given: Discontinued Medications Al Hydroxide/Mg Hydroxide (Maalox Susp) 30 ml PO ONCE ONE Stop: 08/07/18 22:49 Last Admin: 08/07/18 23:01 Dose: 30 ml Hyoscyamine Sulfate (Levsin, Hyomax-Sl) 0.25 mg PO ONCE ONE Stop: 08/07/18 22:49 Last Admin: 18 23:01 Dose: 0.25 mg Lidocaine (Lidocaine 2% Viscous) 15 ml PO ONCE ONE Stop: 08/07/18 22:49 Last Admin: 08/07/18 23:01 Dose: 15 ml Departure - Departure Disposition: Home, Routine, Self-Care Clinical Impression: Abdominal pain Qualifiers: Abdominal location: right upper quadrant Qualified Code(s): R10.11 - Right upper quadrant pain Condition: Good Instructions: Acute Abdominal Pain (ED) Additional Instructions: Seek immediate medical attention if you develop new or worsening symptoms, if you develop fevers, chills, inability to tolerate oral intake or any other symptoms that concerns you. Referrals: Saúl Nunn MD [Medical Doctor] - 5-7 days, call for appt. Prescriptions: Hydrocodone/APAP 5/325 [Arroyo 5/325 (RX)] 1 tab PO Q6 PRN #7 tab PRN Reason: Pain, Severe
[2018-08-07 23:53] VITALS: BP 116/75
== END 2018-08-07 23:52 | disposition home or self-care (01) ==
DX: R10.11 Right upper quadrant pain (principal)

== ENCOUNTER → 2018-08-15 | Outpatient (CLI) | payer BC | LOC: BRMIMAGING 08:32 | PROVIDERS: ATTEND Family Medicine | DX: R10.10 Upper abdominal pain, unspecified (principal); R14.0 Abdominal distension (gaseous) | CPT/HCPCS: 76700-PO ==

== ENCOUNTER → 2018-08-17 | Outpatient (CLI) | payer BC | LOC: FIMAGING 10:47 | PROVIDERS: ATTEND Surgery | DX: R10.11 Right upper quadrant pain (principal) | CPT/HCPCS: 78227; A9537 ==

== ENCOUNTER → 2018-10-28 | Outpatient (CLI) | payer BC | LOC: BRMIMAGING 11:04 | PROVIDERS: ATTEND Obstetrics & Gynecology | DX: D25.1 Intramural leiomyoma of uterus (principal); Z97.5 Presence of (intrauterine) contraceptive device | CPT/HCPCS: 76856-PO ==

== ENCOUNTER → 2018-12-28 | Outpatient (CLI) | payer BC | LOC: BRMIMAGING 08:05 | PROVIDERS: ATTEND Family Medicine | DX: M54.2 Cervicalgia (principal) ==